=== PATIENT | female | born 1985 | race Caucasian/White ===

== ENCOUNTER 2017-07-25 16:01 | Emergency (ER) | payer MEDICAID ==
[~2017-07-25] VITALS: Ht 165.1 cm; Wt 125.0 kg
[2017-07-25 16:19] VITALS: Ht 165.1 cm; Wt 125.0 kg
[2017-07-25 19:14] VITALS: BP 128/71
== END 2017-07-25 19:14 | disposition home or self-care (01) ==
LOC: ED 16:01
DX: L03.116 Cellulitis of left lower limb (principal)
CPT/HCPCS: J0696; J2001; Q0092

== ENCOUNTER 2017-08-24 09:39 | Emergency (ER) | payer MEDICAID ==
[~2017-08-24] VITALS: Ht 160 cm; Wt 121.1 kg
[2017-08-24 09:54] VITALS: Ht 160 cm; Wt 121.1 kg
[2017-08-24 12:25] VITALS: BP 114/77
== END 2017-08-24 12:25 | disposition home or self-care (01) ==
LOC: ED 09:39
DX: L03.116 Cellulitis of left lower limb (principal); G43.909 Migraine, unspecified, not intractable, without status migrainosus
CPT/HCPCS: J1885; J2765; Q0092

== ENCOUNTER 2018-11-18 21:10 | Observation (INO) | payer OTHER ==
[~2018-11-18] VITALS: Ht 162.6 cm; Wt 127.5 kg
[2018-11-18 21:20] VITALS: Ht 162.6 cm; Wt 127.5 kg
[2018-11-18 23:29] LABS: BASOPHIL % 0.3 % (0-2); PLATELET COUNT 224 x10^3mcL (130-400)
[2018-11-18 23:35] LABS: RED CELL DISTRIBUTION WIDTH 20.6 % (11.5-14.5)
[2018-11-19 00:49] LABS: rbc morphology (normal/abnorm) ABNORMAL (NORMAL)
[2018-11-19 00:53] LABS: microscopic required? YES; urine erythrocyte 3+ (NEGATIVE)
[2018-11-19 04:54] VITALS: BP 137/75
[2018-11-19 07:58] VITALS: BP 119/73
[2018-11-19 09:03] LABS: BASOPHIL % 0.4 % (0-2); PLATELET COUNT 193 x10^3mcL (130-400)
[2018-11-19 09:19] LABS: RED CELL DISTRIBUTION WIDTH 25.8 % (11.5-14.5)
[2018-11-19 12:14] VITALS: BP 116/77
[2018-11-19 13:59] LABS: rbc morphology (normal/abnorm) ABNORMAL (NORMAL)
[2018-11-19 16:51] VITALS: BP 140/68
[2018-11-19 19:20] VITALS: BP 127/78
[2018-11-20] VITALS (10 sets, daily range): BP systolic 111–137; BP diastolic 58–81
[2018-11-20 06:19] LABS: BASOPHIL % 0.2 % (0-2); PLATELET COUNT 184 x10^3mcL (130-400)
[2018-11-20 06:52] LABS: RED CELL DISTRIBUTION WIDTH 26.1 % (11.5-14.5)
[2018-11-20 07:08] LABS: CALCIUM 7.6 mg/dL (8.5-10.1); CARBON DIOXIDE 28.6 mmol/L (21-32); CHLORIDE SERUM 108 mmol/L (98-107); CREATININE SERUM 0.7 mg/dL (0.6-1.0); GFR1 > 60 mL/min; GLUCOSE SERUM 97 mg/dL (74-106); MAGNESIUM 2.4 mg/dL (1.8-2.4); POTASSIUM SERUM 4.1 mmol/L (3.5-5.1); SODIUM SERUM 143 mmol/L (136-145)
[2018-11-20 13:26] LABS: rbc morphology (normal/abnorm) ABNORMAL (NORMAL)
[2018-11-20 13:27] LABS: ovalocyte/elliptocyte 1+
[2018-11-21 06:23] VITALS: BP 127/70
[2018-11-21 06:34] LABS: BASOPHIL % 0.8 % (0-2)
[2018-11-21 07:00] LABS: CALCIUM 8.3 mg/dL (8.5-10.1); CARBON DIOXIDE 29.8 mmol/L (21-32); CHLORIDE SERUM 108 mmol/L (98-107); CREATININE SERUM 0.6 mg/dL (0.6-1.0); GFR1 > 60 mL/min; GLUCOSE SERUM 86 mg/dL (74-106); MAGNESIUM 2.7 mg/dL (1.8-2.4); POTASSIUM SERUM 3.8 mmol/L (3.5-5.1); SODIUM SERUM 144 mmol/L (136-145)
[2018-11-21 07:35] LABS: RED CELL DISTRIBUTION WIDTH 24.8 % (11.5-14.5)
[2018-11-21 08:29] VITALS: BP 106/56
[2018-11-21 11:11] LABS: rbc morphology (normal/abnorm) ABNORMAL (NORMAL)
[2018-11-21 11:12] LABS: target cell (codocyte) 1+
[2018-11-21 11:13] LABS: PLATELET COUNT 259 x10^3mcL (130-400)
[2018-11-21 13:09] VITALS: BP 106/56
== END 2018-11-21 14:20 | disposition home or self-care (01) | DRG 988 ==
LOC: ED 21:10 → MU 11-19 01:21
PROVIDERS: Emergency Medicine; Internal Medicine Pulmonary Disease; ADMIT Internal Medicine Pulmonary Disease
PROC: 30233N1 Transfusion of Nonautologous Red Blood Cells into Peripheral Vein, Percutaneous Approach (ICD-10-PCS; principal; 2018-11-19)
PROC: 0UDB7ZZ Extraction of Endometrium, Via Natural or Artificial Opening (ICD-10-PCS; principal; 2018-11-19)
DX: D50.0 Iron deficiency anemia secondary to blood loss (chronic) (principal); Z68.42 Body mass index [BMI] 45.0-49.9, adult; N92.1 Excessive and frequent menstruation with irregular cycle; N85.00 Endometrial hyperplasia, unspecified; E86.9 Volume depletion, unspecified; R42 Dizziness and giddiness; E66.9 Obesity, unspecified; E66.01 Morbid (severe) obesity due to excess calories
CPT/HCPCS: C1758; G0378; J0690; J2250; J3490; J7030; J7040; J7120; P9016; Q0092